=== PATIENT | female | born 1965 | race Caucasian/White ===

== ENCOUNTER 2019-12-20 03:14 | Inpatient (IN) | payer MEDICAID ==
[~2019-12-20] VITALS: Ht 167.6 cm; Wt 95.4 kg
[2019-12-20 07:00] LABS: Basophils # (auto) 0.1 10 ^3/uL (0-0.2); Eosinophils # (auto) 0 10 ^3/uL (0-0.8); Mean Corpuscular Hemoglobin 35.3 pg (28.0-32.0); Monocytes # (auto) 0.8 10 ^3/uL (0-1.3); Neutrophils # (auto) 10.8 10 ^3/uL (1.6-8.6); White Blood Cell 12.7 10^3/uL (4.4-10.8)
[2019-12-20 07:02] LABS: Basophils % (auto) 0.8 % (0.0-2.0); Hematocrit 44.1 % (36.0-46.0); Hemoglobin 15.3 g/dL (12.2-16.2); Lymphocytes % (auto) 7.6 % (10.0-50.0); Mean Corpuscular Hgb Conc. 34.7 g/dL (32.0-36.0); Mean Corpuscular Volume 101.8 fL (80.0-100.0); Monocytes % (auto) 6.3 % (0.0-12.0); Neutrophils % (auto) 85.3 % (37.0-80.0); Nucleated Red Blood Cells % 0.1 %; Platelet Count (auto) 198 10^3/uL (140-450); Red Blood Cells 4.33 10^6/uL (4.0-5.20)
[2019-12-20 07:15] LABS: Potassium 3.5 mmol/L (3.5-5.1)
[2019-12-20] MEDS ORDERED: SODIUM CHLORIDE 0.9% 1,000 ML IV ONE ×2 (07:15)
[2019-12-20] MEDS ORDERED: PROMETHAZINE HCL 25 MG/ML 1ML IV ONE (07:15)
[2019-12-20 07:22] LABS: Albumin 4.1 g/dL (3.4-5.0); BUN/Creatinine Ratio 9.1; Calcium 9.7 mg/dL (8.5-10.1); Total Protein 8.2 g/dL (6.4-8.2)
[2019-12-20] MEDS ORDERED: cefTRIAXone 1GM/50ML D5W 50 ML IV ONE (09:15)
[2019-12-20] MEDS ORDERED: metroNIDAZOLE 500MG/100ML 100 ML IV ONE (09:15)
[2019-12-20 10:07] LABS: Urine Bacteria FEW /hpf (None Seen); Urine Blood Negative /uL (Negative); Urine Hyaline Cast MANY /lpf (0 - 2); Urine Mucus FEW (None Seen); Urine Specific Gravity 1.029 (1.001-1.035); Urine WBC 33 /hpf (0 - 5)
[2019-12-20] MEDS ORDERED: ONDANSETRON HCL 4 MG/2 ML VIAL IV PRN (10:15)
[2019-12-20] MEDS ORDERED: LORazepam 0.5 MG TAB PO PRN (10:15)
[2019-12-20] MEDS ORDERED: HYDROcodone-ACET 5/325MG TAB PO PRN (10:15)
[2019-12-20] MEDS ORDERED: DOCUSATE SOD 100 MG CAP PO PRN (10:15)
[2019-12-20] MEDS ORDERED: DEXTROSE (50%) 50ML SYRG IV PRN (10:15)
[2019-12-20] MEDS ORDERED: ACETAMINOPHEN 325 MG TAB PO PRN (10:15)
[2019-12-20] MEDS ORDERED: MORPHINE SULF INJ 2 MG/ML SYRINGE 1ML IV PRN (10:15)
[2019-12-20 10:25] LABS: Eosinophils # (auto) 0 10 ^3/uL (0-0.8)
[2019-12-20 10:28] LABS: Basophils # (auto) 0 10 ^3/uL (0-0.2); Basophils % (auto) 0.4 % (0.0-2.0); Hematocrit 40.5 % (36.0-46.0); Lymphocytes # (auto) 1.1 10 ^3/uL (0.4-5.4); Mean Corpuscular Hemoglobin 35.5 pg (28.0-32.0); Mean Corpuscular Hgb Conc. 34.4 g/dL (32.0-36.0); Mean Corpuscular Volume 103.1 fL (80.0-100.0); Monocytes # (auto) 0.7 10 ^3/uL (0-1.3); Monocytes % (auto) 7.5 % (0.0-12.0); Neutrophils # (auto) 6.9 10 ^3/uL (1.6-8.6); Neutrophils % (auto) 79.1 % (37.0-80.0); Nucleated Red Blood Cells % 0.1 %; Platelet Count (auto) 156 10^3/uL (140-450); Red Blood Cells 3.93 10^6/uL (4.0-5.20); White Blood Cell 8.7 10^3/uL (4.4-10.8)
[2019-12-20 10:32] LABS: Calcium 8.9 mg/dL (8.5-10.1); Potassium 3.2 mmol/L (3.5-5.1)
[2019-12-20] MEDS: SODIUM CHLORIDE 0.9% 1,000 ML IV SCH ×2 (10:34→21:30)
[2019-12-20 10:37] LABS: BUN/Creatinine Ratio 9.4
[2019-12-20] MEDS ORDERED: CETI10TA80 PO (10:44)
[2019-12-20] MEDS ORDERED: THIA100T10 PO (10:44)
[2019-12-20] MEDS ORDERED: ALBUAER3 IN (10:44)
[2019-12-20] MEDS ORDERED: POTA10TA32 PO (10:44)
[2019-12-20] MEDS ORDERED: LEVO25TA6 PO (10:44)
[2019-12-20] MEDS ORDERED: FLUT1AER6 IN (10:44)
[2019-12-20] MEDS ORDERED: MULT-1018 PO (10:44)
[2019-12-20] MEDS ORDERED: FOLITAB19 PO (10:44)
[2019-12-20] MEDS ORDERED: PANT40TA2 PO (10:44)
[2019-12-20] MEDS ORDERED: ALLO300T2 PO (10:44)
[2019-12-20] MEDS ORDERED: MAGN400T40 PO (10:44)
[2019-12-20] MEDS ORDERED: AMLO10TA13 PO (10:44)
[2019-12-20] MEDS ORDERED: LOP2C PO (10:44)
[2019-12-20] MEDS ORDERED: CITA-77 PO (10:44)
[2019-12-20] MEDS: metroNIDAZOLE 500MG/100ML 100 ML IV SCH ×3 (11:29→23:32)
[2019-12-20] MEDS: InsuLIN REG 1unit/0.01ml Soln (100units/ml) SC SCH ×3 (12:00→23:31)
[2019-12-20] MEDS: ACCU-CHEK COMFORT CURVE STRIP VI SCH ×3 (12:29→23:31)
[2019-12-20 13:00] VITALS: BP 131/84
[2019-12-20 17:00] VITALS: BP 141/94
[2019-12-20] MEDS: FAMOTIDINE (10MG/ML) 2ML VL IV SCH (21:38)
[2019-12-20 22:00] VITALS: BP 129/86
[2019-12-21 05:00] VITALS: BP 134/84
[2019-12-21] MEDS: ACCU-CHEK COMFORT CURVE STRIP VI SCH ×2 (06:33→11:48)
[2019-12-21] MEDS: InsuLIN REG 1unit/0.01ml Soln (100units/ml) SC SCH ×2 (06:33→11:47)
[2019-12-21] MEDS: metroNIDAZOLE 500MG/100ML 100 ML IV SCH ×2 (06:37→11:47)
[2019-12-21] MEDS: SODIUM CHLORIDE 0.9% 1,000 ML IV SCH (06:39)
[2019-12-21 08:00] VITALS: BP 142/89
[2019-12-21 08:47] VITALS: BP_SYST 118; BP_SYST 124; BP_DIAS 62; BP_DIAS 89
[2019-12-21 09:21] LABS: Hepatitis B Surface Antibody Negative
[2019-12-21 09:52] LABS: Hepatitis A Total Antibody Negative
[2019-12-21] MEDS: FAMOTIDINE (10MG/ML) 2ML VL IV SCH (10:10)
[2019-12-21 11:35] LABS: Hepatitis A Ab IgM Negative; Hepatitis B Core IgM Negative; Hepatitis B Core Total AB Negative; Hepatitis B Surface Antigen Negative (Negative)
[2019-12-21 11:36] LABS: Hepatitis C Antibody Negative (Negative)
[2019-12-21 12:43] VITALS: BP 138/93
--- NOTE | 2019-12-21 13:42 | NUR ---
PATIENT DISCHARGED HOME WITH FAMILY. PATIENT NON-TELEMETRY. ALL IV ACCESS DISCONTINUED. ALL DISCHARGE INSTRUCTIONS GIVEN. ALL DISCHARGE PAPERWORK SIGNED.
== END 2019-12-21 13:53 | disposition home or self-care (01) | DRG 249 ==
LOC: ER 03:16 → OVERFLOW 03:17 → WEST WING 11:42
PROVIDERS: ADMIT Hospitalist; ATTEND Family Medicine
DX: K52.3 Indeterminate colitis (principal); K70.9 Alcoholic liver disease, unspecified; E86.0 Dehydration; I10 Essential (primary) hypertension; K76.0 Fatty (change of) liver, not elsewhere classified; K82.8 Other specified diseases of gallbladder; Z87.19 Personal history of other diseases of the digestive system; E66.01 Morbid (severe) obesity due to excess calories; R73.9 Hyperglycemia, unspecified; Z68.33 Body mass index [BMI] 33.0-33.9, adult
CPT/HCPCS: 36415; 71045; 74176; 76705; 80048; 80053; 80061; 80074; 81001; 82728; 82962; 83036; 83605; 85025; 86038; 86704; 86706; 86708; 86803; 87040; 87340; 96361; 96365; 96375; G0378; J0696; J3490